=== PATIENT | male | born 1945 | race Caucasian/White ===

== ENCOUNTER → 2020-08-22 | Outpatient (CLI) | payer MEDICARE, BC | LOC: LAB SHORT 09:28 → LAB FUT 08-22 16:50 | DX: R19.7 Diarrhea, unspecified (principal) | CPT/HCPCS: 87493 ==

== ENCOUNTER → 2022-04-23 | Outpatient (CLI) | payer MEDICARE, BC ==
[2022-04-23 18:44] LABS: Hematocrit 44.7 % (37.0-53.0); Hemoglobin 14.9 g/dL (13.5-17.5); Mean Corpuscular HGB 28.3 pg (26.0-34.0); Mean Corpuscular HGB Conc 33.3 g/dL (31.5-36.5); Mean Corpuscular Volume 85 fL (80-100); Mean Platelet Volume 11.1 fL (9.1-12.4); Platelet Count 239 K/mm3 (150-400); RDW Coefficient Variation 13.7 % (11.7-14.2); RDW Standard Deviation 42.6 fL (35.1-46.3); Red Blood Cell Count 5.27 M/mm3 (4.30-5.90); White Blood Cell Count 18.27 K/mm3 (4.00-11.30)
== END | disposition home or self-care (01) ==
LOC: LAB 13:30 → LAB SHORT 13:30
PROVIDERS: Family Medicine
DX: J18.9 Pneumonia, unspecified organism (principal)
CPT/HCPCS: 85027

== ENCOUNTER 2023-04-22 06:03 | Day surgery (SDC) | payer MEDICARE, BC ==
[~2023-04-22] VITALS: Ht 182.9 cm; Wt 83.4 kg
[2023-04-22] MEDS ORDERED: Ventolin5 MG/1 ML (06:25)
[2023-04-22] MEDS ORDERED: Avodart0.5 MG (06:25)
[2023-04-22] MEDS ORDERED: FLUTICASONE-SA1 EAC1 (06:25)
[2023-04-22] MEDS ORDERED: GABA100 (06:26)
[2023-04-22] MEDS ORDERED: Flonase 0.05% N16 GM (06:26)
[2023-04-22] MEDS ORDERED: METPRE2 (06:27)
[2023-04-22] MEDS ORDERED: LEVOFLOXACIN (06:27)
[2023-04-22] MEDS ORDERED: METO25ER (06:27)
[2023-04-22] MEDS ORDERED: LEVALBUTER0.31 MG/1 (06:27)
[2023-04-22 09:59] VITALS: BP 155/79
== END 2023-04-22 08:23 | disposition home or self-care (01) ==
LOC: ORSCSDS 06:03
PROVIDERS: Internal Medicine Gastroenterology
PROC: 0DBM8ZX Excision of Descending Colon, Via Natural or Artificial Opening Endoscopic, Diagnostic (ICD-10-PCS; principal; 2023-04-22 07:30)
DX: R19.4 Change in bowel habit (principal); K63.5 Polyp of colon; J44.9 Chronic obstructive pulmonary disease, unspecified; G47.30 Sleep apnea, unspecified; Z99.81 Dependence on supplemental oxygen; G62.9 Polyneuropathy, unspecified; I10 Essential (primary) hypertension; E78.00 Pure hypercholesterolemia, unspecified; Z79.899 Other long term (current) drug therapy
CPT/HCPCS: 88305; J2704; J7120

== ENCOUNTER 2025-05-13 03:42 | Inpatient (IN) | payer MEDICARE ==
[~2025-05-13] VITALS: Ht 182.9 cm; Wt 86.0 kg
[~2025-05-13 03:42] MED LIST: Avodart0.5 MG; FLUTICASONE-SA1 EAC1; Flonase 0.05% N16 GM; GABA100; LEVALBUTER0.31 MG/1; LEVOFLOXACIN; METO25ER; METPRE2; Ventolin5 MG/1 ML
[2025-05-13] MEDS ORDERED: Ketorolac Tromethamine 15mg Vial IV ONE (04:00)
[2025-05-13] MEDS ORDERED: CefTRIAXone Sodium 1,000 MG in NS 100 ML IV ONE (04:05)
[2025-05-13 04:13] LABS: BASOPHILS ABSOLUTE AUTO 0.02 K/mm3 (0.00-0.23); BASOPHILS PERCENT AUTO 0 % (0-2); EOSINOPHILS ABSOLUTE AUTO 0.06 K/mm3 (0.00-0.68); EOSINOPHILS PERCENT AUTO 1 % (0-6); Hematocrit 43.5 % (37.0-53.0); Hemoglobin 15.2 g/dL (13.5-17.5); IMMATURE GRAN ABSOLUTE AUTO 0.05 K/mm3 (0.00-0.10); IMMATURE GRAN PERCENT AUTO 0 % (0-1); LYMPHOCYTES ABSOLUTE AUTO 1.80 K/mm3 (0.84-5.20); LYMPHOCYTES PERCENT AUTO 15 % (21-46); MONOCYTES ABSOLUTE AUTO 0.40 K/mm3 (0.16-1.47); MONOCYTES PERCENT AUTO 3 % (4-13); Mean Corpuscular HGB Conc 34.9 g/dL (31.5-36.5); Mean Corpuscular Volume 83 fL (80-100); NEUTROPHILS ABSOLUTE AUTO 10.07 K/mm3 (1.96-9.15); NEUTROPHILS PERCENT AUTO 81 % (41-73); NRBC ABSOLUTE 0.00 K/mm3 (0.00-0.02); NRBC Auto 0.0 /100 WBC (0.0-0.2); Platelet Count 153 K/mm3 (150-400); RDW Coefficient Variation 14.0 % (11.7-14.2); RDW Standard Deviation 41.9 fL (35.1-46.3)
[2025-05-13 04:37] LABS: Alanine Aminotransfer (ALT/SGP 19.0 U/L (12-78); Albumin, Blood 3.3 g/dL (3.4-5.0); Albumin/Globulin Ratio 1.1 (0.8-1.8); Anion Gap 10.0 mmol/L (3-11); Aspartate Aminotrans (AST/SGOT 15.0 U/L (12-37); Bilirubin, Total 0.5 mg/dL (0.1-1.0); Blood Urea Nitrogen 17.0 mg/dL (8-24); CO2, Blood 22.0 mmol/L (21-32); Calcium, Blood 8.2 mg/dL (8.5-10.1); Chloride, Blood 108.0 mmol/L (98-108); Creatinine, Blood 0.9 mg/dL (0.60-1.20); Globulin, Blood 3.1 g/dL (2.2-4.0); Glucose, Blood 111.0 mg/dL (70-99); Magnesium, Blood 1.5 mg/dL (1.6-2.4); Potassium, Blood 4.4 mmol/L (3.5-5.5); Sodium, Blood 136.0 mmol/L (136-145); Total Protein, Blood 6.4 g/dL (6.4-8.2)
[2025-05-13 04:50] LABS: Influenza A, PCR NEGATIVE (NEGATIVE); Influenza B, PCR NEGATIVE (NEGATIVE); Resp Syncytial Virus, PCR NEGATIVE (NEGATIVE); SARS-Cov-2 (COVID-19) PCR, MMC NEGATIVE (NEGATIVE)
[2025-05-13] MEDS ORDERED: NS 1,000 ML IV SCH (07:35)
[2025-05-13] MEDS ORDERED: Ondansetron HCl 2 MG / ML 2ML Vial IV PRN (07:35)
[2025-05-13] MEDS ORDERED: Ipratropium/Albuterol SulF 2.5-0.5MG/3 ML Amp INH SCH (07:40)
[2025-05-13] MEDS ORDERED: Albuterol 2.5 MG/3 ML VIAL INH PRN (07:40)
[2025-05-13] MEDS ORDERED: Fluticasone 0.05% Nasal Spray PRN (07:45)
[2025-05-13] MEDS ORDERED: Formoterol/Mometasone MDI 5/200 mcg 13 GM INH SCH (07:50)
[2025-05-13] MEDS ORDERED: Enoxaparin 40 MG/0.4 ML SYR SC SCH (09:00)
[2025-05-13] MEDS ORDERED: FLU VACC TS2025(65UP)/MF59C/PF 45 MCG/0.5 ML SYRINGE IM SCH (14:00)
[2025-05-13 14:38] VITALS: BP 124/73
[2025-05-13] MEDS ORDERED: PREG75 PO (14:38)
[2025-05-13] MEDS ORDERED: Crestor40 MG PO (14:40)
[2025-05-13] MEDS ORDERED: METO25ER PO (14:43)
[2025-05-13] MEDS ORDERED: NS 250 ML IV PRN (17:25)
[2025-05-13] MEDS ORDERED: Mag Sulfate 1 GM/D5% 100ML 100 ML IV ONE (17:25)
--- NOTE | 2025-05-13 18:31 | NUR ---
ADMIT NOTE PT A&OX4. PT ADMITTED TO FLOOR AT 1420. PT REPORTS NO GENERALIZED PAIN OR CHEST PAIN. VSS. ORAL TEMP LAST WAS 99.1. PT REPORTS SOB AT REST AND WITH EXERTION. PT HAS CONT PULSE OX. SPO2 IS 94%. PT ON 2L OF O2. PT REPORTS WEARING 2.5 L AT NIGHT VIA N/C. PT ADMIT COMPLETE. MEDS RECONSILED NOTIFIED DR. BROWN. PT HAS NS RUNNING AT 100ML/HR. PT ON A 2GRAM SODIUM DIET. EATS ADEQUATE PT IS CONT OF URIN AND BM AND REPORTS LAST BM WAS YESTERDAY. THIS RN NOTICED AM LABS SHOWED MAGNESIUM WAS LOW. REPORTED TO STEPHANIE PENN. DR. BROWN ORDERED IVPB MAG. MAG INFUSING. WITH NS CONT RUNNING AT 76ML/HR, 2 RN SKIN CHECK COMPLETE WITH CELESTE SALGADO. NO SKIN CONCERN NOTED. PT ON TELE, NO TELE REPORTS NOTED. PT IN BED, BED IN LOWEST POSITION, CALL LIGHT IN REACH.
[2025-05-13 19:46] VITALS: BP 126/71
--- NOTE | 2025-05-14 04:09 | NUR ---
SHIFT SUMMARY PATIENT HAD NO ACUTE CHANGES. ALERT ORIENTED WITH CONFUSION AT TIMES. SBA TO BR. ON ON 2L O2 NC. TELE MONITOR NSR 80. DENIES CHEST PAIN, SOB, AND N/V. VSS/AFEBRILE. NS INFUSING @ 75 mL/HR. CALL LIGHT IN REACH. BED IN LOWEST POSITION AND ALARM ACTIVATED. WILL CONTINUE TO MONITOR UNTIL DAY SHIFT NURSE ASSUMES CARE.
[2025-05-14 04:43] VITALS: BP 112/43
[2025-05-14 06:08] LABS: BASOPHILS ABSOLUTE AUTO 0.04 K/mm3 (0.00-0.23); BASOPHILS PERCENT AUTO 0 % (0-2); EOSINOPHILS ABSOLUTE AUTO 0.01 K/mm3 (0.00-0.68); EOSINOPHILS PERCENT AUTO 0 % (0-6); Hematocrit 38.5 % (37.0-53.0); Hemoglobin 13.3 g/dL (13.5-17.5); IMMATURE GRAN ABSOLUTE AUTO 0.18 K/mm3 (0.00-0.10); IMMATURE GRAN PERCENT AUTO 1 % (0-1); LYMPHOCYTES ABSOLUTE AUTO 1.82 K/mm3 (0.84-5.20); LYMPHOCYTES PERCENT AUTO 7 % (21-46); MONOCYTES ABSOLUTE AUTO 0.97 K/mm3 (0.16-1.47); MONOCYTES PERCENT AUTO 4 % (4-13); Mean Corpuscular HGB Conc 34.5 g/dL (31.5-36.5); Mean Corpuscular Volume 84 fL (80-100); NEUTROPHILS ABSOLUTE AUTO 22.53 K/mm3 (1.96-9.15); NEUTROPHILS PERCENT AUTO 88 % (41-73); NRBC ABSOLUTE 0.00 K/mm3 (0.00-0.02); NRBC Auto 0.0 /100 WBC (0.0-0.2); Platelet Count 133 K/mm3 (150-400); RDW Coefficient Variation 14.3 % (11.7-14.2); RDW Standard Deviation 43.8 fL (35.1-46.3)
[2025-05-14 06:49] LABS: Alanine Aminotransfer (ALT/SGP 20.0 U/L (12-78); Albumin, Blood 2.9 g/dL (3.4-5.0); Albumin/Globulin Ratio 0.9 (0.8-1.8); Anion Gap 8.0 mmol/L (3-11); Aspartate Aminotrans (AST/SGOT 29.0 U/L (12-37); Bilirubin, Total 0.7 mg/dL (0.1-1.0); Blood Urea Nitrogen 24.0 mg/dL (8-24); CO2, Blood 24.0 mmol/L (21-32); Calcium, Blood 8.7 mg/dL (8.5-10.1); Chloride, Blood 107.0 mmol/L (98-108); Creatinine, Blood 0.99 mg/dL (0.60-1.20); Globulin, Blood 3.2 g/dL (2.2-4.0); Glucose, Blood 126.0 mg/dL (70-99); Magnesium, Blood 2.2 mg/dL (1.6-2.4); Potassium, Blood 4.2 mmol/L (3.5-5.5); Sodium, Blood 135.0 mmol/L (136-145); Total Protein, Blood 6.1 g/dL (6.4-8.2)
[2025-05-14 08:26] VITALS: BP 119/58
[2025-05-14] MEDS ORDERED: CefTRIAXone Sodium 2,000 MG in NS 100 ML IV SCH (09:00)
[2025-05-14 11:26] VITALS: BP 136/72
[2025-05-14 16:19] VITALS: BP 160/81
--- NOTE | 2025-05-14 18:31 | NUR ---
PATIENT IN BED WITH BATHROOM PRIVILEGES. POST BREATHING TREATMENTS PATIENT HAS LARGE COUGHING FITS AND BREAKS UP MUCOUS. PATIENT TOLERATES WELL.
[2025-05-14 19:46] VITALS: BP 126/52
[2025-05-15 01:13] VITALS: BP 163/89
[2025-05-15 03:40] VITALS: BP 164/87
--- NOTE | 2025-05-15 03:45 | NUR ---
RECIEVED CALL FROM [employer] REPORTING THAT PATIENT HAD A 9 BEAT RUN OF V-TACH. PATIENT VITAL SIGNS OBTAINED, NO REPORT OF CHEST PAIN/PRESSURE OR SOB. THIS RN CALLED DR ROSAS AND REPORTED EVENT TO HIM. NO NEW ORDERS AT THIS TIME.
--- NOTE | 2025-05-15 05:20 | NUR ---
SHIFT SUMMARY PATIENT A/O X4- PLEASANT AND COOPERATIVE WITH CARE. REPORTED HEADACHE AT THE BEGINNING OF SHIFT. 325MG OF TYLENOL GIVEN PER EMAR. PATIENT CONTINUES ON 2.5L OF OXYGEN THERAPY VIA NC, REPORTS SOB WHEN EXERTING. PATIENT UP TO BATHROOM WITH SBA. VOIDING WELL. NO BM THIS SHIFT. NO REPORT OF CHEST PAIN OR PRESSURE. NO ACUTE CHANGES THROUGHOUT SHIFT. CALL LIGHT WITHIN REACH, BED IN LOWEST POSITION. WILL REPORT TO DAY SHIFT RN.
[2025-05-15 05:45] LABS: BASOPHILS ABSOLUTE AUTO 0.05 K/mm3 (0.00-0.23); BASOPHILS PERCENT AUTO 0 % (0-2); EOSINOPHILS ABSOLUTE AUTO 0.02 K/mm3 (0.00-0.68); EOSINOPHILS PERCENT AUTO 0 % (0-6); Hematocrit 39.8 % (37.0-53.0); Hemoglobin 13.5 g/dL (13.5-17.5); IMMATURE GRAN ABSOLUTE AUTO 0.09 K/mm3 (0.00-0.10); IMMATURE GRAN PERCENT AUTO 1 % (0-1); LYMPHOCYTES ABSOLUTE AUTO 1.62 K/mm3 (0.84-5.20); LYMPHOCYTES PERCENT AUTO 9 % (21-46); MONOCYTES ABSOLUTE AUTO 1.12 K/mm3 (0.16-1.47); MONOCYTES PERCENT AUTO 6 % (4-13); Mean Corpuscular HGB Conc 33.9 g/dL (31.5-36.5); Mean Corpuscular Volume 85 fL (80-100); NEUTROPHILS ABSOLUTE AUTO 15.78 K/mm3 (1.96-9.15); NEUTROPHILS PERCENT AUTO 84 % (41-73); NRBC ABSOLUTE 0.00 K/mm3 (0.00-0.02); NRBC Auto 0.0 /100 WBC (0.0-0.2); Platelet Count 146 K/mm3 (150-400); RDW Coefficient Variation 14.4 % (11.7-14.2); RDW Standard Deviation 44.0 fL (35.1-46.3)
[2025-05-15 06:12] LABS: Alanine Aminotransfer (ALT/SGP 33.0 U/L (12-78); Albumin, Blood 3.0 g/dL (3.4-5.0); Albumin/Globulin Ratio 0.9 (0.8-1.8); Anion Gap 8.0 mmol/L (3-11); Aspartate Aminotrans (AST/SGOT 60.0 U/L (12-37); Bilirubin, Total 0.7 mg/dL (0.1-1.0); Blood Urea Nitrogen 20.0 mg/dL (8-24); CO2, Blood 24.0 mmol/L (21-32); Calcium, Blood 8.7 mg/dL (8.5-10.1); Chloride, Blood 108.0 mmol/L (98-108); Creatinine, Blood 0.84 mg/dL (0.60-1.20); Globulin, Blood 3.2 g/dL (2.2-4.0); Glucose, Blood 97.0 mg/dL (70-99); Potassium, Blood 4.4 mmol/L (3.5-5.5); Sodium, Blood 136.0 mmol/L (136-145); Total Protein, Blood 6.2 g/dL (6.4-8.2)
[2025-05-15 07:45] VITALS: BP 170/97
[2025-05-15 11:01] VITALS: BP 149/79
[2025-05-15] MEDS ORDERED: AZIT250 PO (13:52)
[2025-05-15] MEDS ORDERED: AMOCLA875 PO (13:52)
[2025-05-15] MEDS ORDERED: Lactobacil 2-S.Thermo-Bifido 1 1 Cap PO SCH (21:00)
== END 2025-05-15 14:00 | disposition home or self-care (01) | DRG 190 ==
LOC: ER 03:42 → ERHOLD 08:17 → MEDS 14:28
PROVIDERS: Student in an Organized Health Care Education/Training Program; ADMIT Family Medicine
DX: J44.1 Chronic obstructive pulmonary disease with (acute) exacerbation (principal); J18.9 Pneumonia, unspecified organism; N40.0 Benign prostatic hyperplasia without lower urinary tract symptoms; G47.30 Sleep apnea, unspecified; I10 Essential (primary) hypertension; E78.00 Pure hypercholesterolemia, unspecified; J44.0 Chronic obstructive pulmonary disease with (acute) lower respiratory infection; G62.9 Polyneuropathy, unspecified; G47.33 Obstructive sleep apnea (adult) (pediatric); E78.5 Hyperlipidemia, unspecified; E83.42 Hypomagnesemia; Z98.890 Other specified postprocedural states; Z79.51 Long term (current) use of inhaled steroids; Z79.899 Other long term (current) drug therapy; Z79.890 Hormone replacement therapy; Z90.49 Acquired absence of other specified parts of digestive tract; Z99.81 Dependence on supplemental oxygen; Z87.891 Personal history of nicotine dependence
CPT/HCPCS: 36415; 71045; 71260; 80053; 83735; 83880; 85025; 87637; 93005; 93010; 94640; 94664; 94762; 96365; 96375; 99285-25; A9270; J0456; J0696; J1650; J1885; J2919; J3475; J7030; J7050; Q9967